=== PATIENT | male | born 1940 | race Asian ===

== ENCOUNTER 2023-11-17 19:49 | Inpatient (IN) | payer MEDICARE, OTHER ==
[~2023-11-17] VITALS: Ht 172.7 cm; Wt 62.2 kg
[~2023-11-17 19:49] MED LIST: ACETAMINOPHEN325 M1 PO; AMLODIPINE BESYL5 MG PO; COMTAN200 MG PO; DOCUSATE SODIU100 MG PO; GUAIFENESI100 MG/5 M PO; HYTRIN1 M1 PO; KEPPRA500 MG/5 M PO; METOPROLOL TART50 MG PO; MILK OF MA400 MG/5 M PO; SINEMET 25-1001 EACH PO; TRIAMCINOLONE A15 G1 TOP
[2023-11-17] MEDS: Morphine 4mg INJECTION 4 MG/ML INJ IV PRN (19:50)
[2023-11-17] MEDS: SODIUM CHLORIDE 0.9% 1000ML 1,000 ML IV STA ×2 (19:54→21:39)
[2023-11-17] MEDS: SODIUM CHLORIDE 0.9% 1000ML 2,000 ML IV STA (20:27)
[2023-11-17 20:33] LABS: BASOPHILS % 0.3 % (0.0-1.0); HEMATOCRIT 38.2 % (38.2-49.6); HEMOGLOBIN 12.1 g/dL (14.0-18.0); LYMPHOCYTES # (AUTO) 0.6 (1.0-3.2); LYMPHOCYTES % 17.5 % (18.0-39.1); MEAN CORPUSCULAR HEMOGLOBIN 30.2 pg (28-32); MEAN CORPUSCULAR HGB CONC 31.7 g/dL (31-35); MEAN CORPUSCULAR VOLUME 95.3 fL (81-99); MONOCYTES # (AUTO) 0.4 (0.2-0.8); MONOCYTES % 11.5 % (4.4-11.3); NEUTROPHILS # (AUTO) 2.4 (2.1-6.9); NEUTROPHILS % 69.8 % (38.7-80.0); PLATELET COUNT 339 x10e3/uL (140-360); RED BLOOD COUNT 4.01 x10e6/uL (4.3-5.7); RED CELL DISTRIBUTION WIDTH 14.7 % (11.7-14.4); WHITE BLOOD COUNT 3.48 x10e3/uL (4.8-10.8)
[2023-11-17] MEDS: SODIUM CHLORIDE 0.9% 1000ML 1,000 ML IV SCH (20:45)
[2023-11-17] MEDS ORDERED: ONDANSETRON HCL INJ 2MG/ML 2ML 2 MG/ML VIAL IV PRN (20:45)
[2023-11-17 20:50] LABS: ALBUMIN 3.2 g/dL (3.5-5.0); ALBUMIN/GLOBULIN RATIO 0.6 (0.8-2.0); ANION GAP 22.6 mmol/L (8-16); BILIRUBIN,TOTAL 0.5 mg/dL (0.2-1.2); CREATININE, SERUM 1.83 mg/dL (0.72-1.25); POTASSIUM 4.6 mmol/L (3.5-5.1); TOTAL PROTEIN 8.2 g/dL (6.5-8.1)
[2023-11-17 20:56] LABS: TROPONIN I 0.015 ng/mL (0-0.300)
[2023-11-17 20:57] LABS: B-TYPE NATRIURETIC PEPTIDE2 90.5 pg/mL (0-100)
[2023-11-17] MEDS ORDERED: ACETAMINOPHEN 1000 MG/100 ML 100 ML IV ONE (20:59)
[2023-11-17] MEDS ORDERED: FENTANYL CITRATE/PF 100MCG/2 ML INJ ONE (20:59)
[2023-11-17] MEDS ORDERED: ACETAMINOPHEN 325 MG TAB PO PRN (21:00)
[2023-11-17] MEDS ORDERED: MAGNESIUM HYDROXIDE 30 ML UDC PEG PRN (21:00)
[2023-11-17] MEDS: FENTANYL CITRATE/PF 100MCG/2 ML INJ IV ONE (21:15)
[2023-11-17] MEDS: Vancomycin IV 1 GM in SODIUM CHLORIDE 0.9% 250ML 250 ML IV ONE (21:25)
[2023-11-17 23:01] VITALS: PULSE 104; RESP 26; TEMP 97
[2023-11-18] VITALS (99 sets, daily range): BP systolic 77–148; BP diastolic 39–101; PULSE 35–133; RESP 14–32; TEMP 97.1–100.2; O2SAT 74–100
[2023-11-18] MEDS: ACETAMINOPHEN 325 MG TAB PO STA (00:07)
[2023-11-18] MEDS: NOREPINEPHRINE 8 MG/D5W 250 ML 250 ML IV SCH (00:08)
[2023-11-18] MEDS: CARBIDOPA/LEVODOPA 25/100 TAB PEG SCH (00:10)
[2023-11-18] MEDS ORDERED: ATIVAN1 MG PEG (00:34)
[2023-11-18] MEDS ORDERED: ONDANSETRON ODT8 MG PEG (00:34)
[2023-11-18] MEDS ORDERED: LOPERAMIDE2 MG PEG (00:34)
[2023-11-18] MEDS ORDERED: LEVSIN0.125 MG PEG (00:34)
[2023-11-18] MEDS ORDERED: HYDROCODON-ACE1 EAC9 PEG (00:34)
[2023-11-18] MEDS ORDERED: FORMULA (00:34)
[2023-11-18] MEDS ORDERED: morphine solution PEG (00:37)
[2023-11-18 02:13] LABS: CLARITY,URINE CLEAR (CLEAR); COLOR,URINE YELLOW (YELLOW); LEUKOCYTE ESTERASE ,URINE NEGATIVE (NEGATIVE); NITRITE,URINE NEGATIVE (NEGATIVE); PH,URINE 5.5 (5 - 7); PROTEIN,URINE DIPSTICK TRACE (NEGATIVE)
[2023-11-18 02:14] LABS: BILIRUBIN,URINE NEGATIVE (NEGATIVE); GLUCOSE, URINE NEGATIVE (NEGATIVE); KETONES,URINE NEGATIVE (NEGATIVE); URINE UROBILINOGEN 0.2 mg/dL (0.2 - 1)
[2023-11-18 02:50] LABS: BACTERIA,URINE MANY /HPF; EPITHELIAL CELLS,URINE FEW /LPF; TRANSITIONAL EPI CELLS,URINE FEW
[2023-11-18 02:51] LABS: WBC,URINE (MAN) 21-50 /HPF (0-5)
[2023-11-18 04:56] LABS: LYMPHOCYTES % (MANUAL) 20 % (19-48); METAMYELOCYTES % (MANUAL) 2 % (0-0); MONOCYTES % (MANUAL) 16 % (3.4-9.0); NEUTROPHILS % (MANUAL) 62 % (40-74); NUCLEATED RED BLOOD CELLS 1
[2023-11-18 04:57] LABS: PLATELET ESTIMATE ADEQUATE; PLATELET MORPHOLOGY COMMENT NORMAL; RBC MORPHOLOGY COMMENT NORMAL
[2023-11-18 05:38] LABS: HEMATOCRIT 32.1 % (38.2-49.6); LYMPHOCYTES # (AUTO) 0.8 (1.0-3.2); LYMPHOCYTES % 22.2 % (18.0-39.1); MEAN CORPUSCULAR HEMOGLOBIN 30.6 pg (28-32); MEAN CORPUSCULAR HGB CONC 31.2 g/dL (31-35); MEAN CORPUSCULAR VOLUME 98.2 fL (81-99); MONOCYTES # (AUTO) 0.4 (0.2-0.8); MONOCYTES % 11.9 % (4.4-11.3); NEUTROPHILS # (AUTO) 2.3 (2.1-6.9); NEUTROPHILS % 64.2 % (38.7-80.0); PLATELET COUNT 244 x10e3/uL (140-360); RED BLOOD COUNT 3.27 x10e6/uL (4.3-5.7); RED CELL DISTRIBUTION WIDTH 14.8 % (11.7-14.4)
[2023-11-18 06:06] LABS: ALBUMIN 2.5 g/dL (3.5-5.0); ALBUMIN/GLOBULIN RATIO 0.7 (0.8-2.0); ANION GAP 17.5 mmol/L (8-16); BILIRUBIN,TOTAL 0.3 mg/dL (0.2-1.2); CALCIUM 7.3 mg/dL (8.4-10.2); CREATININE, SERUM 1.53 mg/dL (0.72-1.25); POTASSIUM 4.5 mmol/L (3.5-5.1); TOTAL PROTEIN 6.3 g/dL (6.5-8.1)
[2023-11-18 06:12] LABS: TROPONIN I 0.018 ng/mL (0-0.300)
[2023-11-18] MEDS: DOCUSATE SODIUM 100 MG CAP PEG SCH (08:09)
[2023-11-18] MEDS: ACETAMINOPHEN 1000 MG/100 ML IV STA (08:19)
[2023-11-18 08:37] LABS: BAND NEUTROPHILS % (MANUAL) 24 %; LYMPHOCYTES % (MANUAL) 29 % (19-48); METAMYELOCYTES % (MANUAL) 11 % (0-0); MONOCYTES % (MANUAL) 6 % (3.4-9.0); MYELOCYTES % (MANUAL) 6 % (0-0); NEUTROPHILS % (MANUAL) 23 % (40-74); PROMYELOCYTES % (MANUAL) 1 % (0-0)
[2023-11-18 08:38] LABS: PLATELET ESTIMATE ADEQUATE; PLATELET MORPHOLOGY COMMENT NORMAL; RBC MORPHOLOGY COMMENT NORMAL
[2023-11-18] MEDS: SODIUM BICARBONATE 8.4% VIAL 50 ML in SODIUM CHLORIDE 0.45% 1,000 ML IV SCH (08:58)
[2023-11-18] MEDS: ACETAMINOPHEN 325 MG TAB PEG PRN (10:56)
[2023-11-18] MEDS: LEVALBUTEROL HCL SOLN NEBU 0.63 MG/3 ML NEB INH SCH (12:44)
[2023-11-18 13:09] LABS: TROPONIN I 0.027 ng/mL (0-0.300)
[2023-11-19] VITALS (83 sets, daily range): BP systolic 74–144; BP diastolic 31–86; PULSE 99–135; RESP 19–39; TEMP 99.1–102; O2SAT 79–100
[2023-11-19 05:51] LABS: BASOPHILS # (AUTO) 0.1 (0.0-0.1); BASOPHILS % 1.3 % (0.0-1.0); EOSINOPHILS # (AUTO) 0.1 (0.0-0.4); EOSINOPHILS % 1.7 % (0.0-6.0); HEMATOCRIT 28.1 % (38.2-49.6); HEMOGLOBIN 9.1 g/dL (14.0-18.0); LYMPHOCYTES # (AUTO) 0.8 (1.0-3.2); LYMPHOCYTES % 17.4 % (18.0-39.1); MEAN CORPUSCULAR HEMOGLOBIN 30.3 pg (28-32); MEAN CORPUSCULAR HGB CONC 32.4 g/dL (31-35); MEAN CORPUSCULAR VOLUME 93.7 fL (81-99); MONOCYTES # (AUTO) 0.2 (0.2-0.8); MONOCYTES % 3.7 % (4.4-11.3); NEUTROPHILS # (AUTO) 3.5 (2.1-6.9); PLATELET COUNT 202 x10e3/uL (140-360); RED CELL DISTRIBUTION WIDTH 15.1 % (11.7-14.4); WHITE BLOOD COUNT 4.61 x10e3/uL (4.8-10.8)
[2023-11-19 06:21] LABS: ALANINE AMINOTRANSFERASE < 6 IU/L (0-55); ALBUMIN 2.2 g/dL (3.5-5.0); ALBUMIN/GLOBULIN RATIO 0.6 (0.8-2.0); ALKALINE PHOSPHATASE 49 IU/L (40-150); ANION GAP 11.8 mmol/L (8-16); BILIRUBIN,TOTAL 0.3 mg/dL (0.2-1.2); BLOOD UREA NITROGEN 24 mg/dL (7-26); BUN/CREATININE RATIO 23 (6-25); CALCIUM 7.6 mg/dL (8.4-10.2); CARBON DIOXIDE 21 mmol/L (22-29); CHLORIDE 104 mmol/L (98-107); CREATININE, SERUM 1.04 mg/dL (0.72-1.25); EST GLOMERULAR FILTRATION RATE 72 ML/MIN (>=60); GLUCOSE 184 mg/dL (74-118); POTASSIUM 3.8 mmol/L (3.5-5.1); SODIUM 133 mmol/L (136-145); TOTAL PROTEIN 6.1 g/dL (6.5-8.1)
[2023-11-19 08:25] LABS: ABG HCO3 23 mmol/L (22-26); ABG PCO2 40 mmHg (35-45); ABG PH 7.37 (7.35-7.45); ABG PO2 67 mmHg (80-105); ABG TCO2 24
[2023-11-19] MEDS: MEROPENEM 1 GM in SODIUM CHLORIDE 0.9% 100 ML IV SCH (08:53)
[2023-11-19 11:02] LABS: BAND NEUTROPHILS % (MANUAL) 24 %; LYMPHOCYTES % (MANUAL) 24 % (19-48); METAMYELOCYTES % (MANUAL) 9 % (0-0); MONOCYTES % (MANUAL) 8 % (3.4-9.0); MYELOCYTES % (MANUAL) 5 % (0-0); NEUTROPHILS % (MANUAL) 29 % (40-74); REACTIVE LYMPHOCYTES 1
[2023-11-19 11:03] LABS: PLATELET ESTIMATE ADEQUATE; PLATELET MORPHOLOGY COMMENT NORMAL
[2023-11-19 12:40] LABS: FERRITIN 176.11 ng/mL (21.81-274.66)
[2023-11-19] MEDS: SODIUM FERRIC GLUCONATE COMPLX 125 MG in SODIUM CHLORIDE 0.9% 100 ML IV SCH (14:16)
[2023-11-20] VITALS (40 sets, daily range): BP systolic 84–174; BP diastolic 42–88; PULSE 67–146; RESP 18–37; TEMP 98.4–99.8; O2SAT 94–100
[2023-11-20 06:49] LABS: BASOPHILS % 0.1 % (0.0-1.0); EOSINOPHILS # (AUTO) 0.1 (0.0-0.4); EOSINOPHILS % 0.6 % (0.0-6.0); HEMATOCRIT 28.4 % (38.2-49.6); HEMOGLOBIN 9.4 g/dL (14.0-18.0); LYMPHOCYTES % 5.2 % (18.0-39.1); MEAN CORPUSCULAR HEMOGLOBIN 30.5 pg (28-32); MEAN CORPUSCULAR HGB CONC 33.1 g/dL (31-35); MEAN CORPUSCULAR VOLUME 92.2 fL (81-99); MONOCYTES # (AUTO) 0.8 (0.2-0.8); MONOCYTES % 4.3 % (4.4-11.3); NEUTROPHILS # (AUTO) 16.5 (2.1-6.9); NEUTROPHILS % 88.2 % (38.7-80.0); PLATELET COUNT 196 x10e3/uL (140-360); RED BLOOD COUNT 3.08 x10e6/uL (4.3-5.7); RED CELL DISTRIBUTION WIDTH 15.1 % (11.7-14.4); WHITE BLOOD COUNT 18.75 x10e3/uL (4.8-10.8)
[2023-11-20 07:04] LABS: ALANINE AMINOTRANSFERASE < 6 IU/L (0-55); ALBUMIN 2.1 g/dL (3.5-5.0); ALBUMIN/GLOBULIN RATIO 0.5 (0.8-2.0); ALKALINE PHOSPHATASE 78 IU/L (40-150); ANION GAP 8.8 mmol/L (8-16); BILIRUBIN,TOTAL 0.3 mg/dL (0.2-1.2); BLOOD UREA NITROGEN 25 mg/dL (7-26); BUN/CREATININE RATIO 28 (6-25); CALCIUM 9.1 mg/dL (8.4-10.2); CARBON DIOXIDE 29 mmol/L (22-29); CHLORIDE 105 mmol/L (98-107); CREATININE, SERUM 0.89 mg/dL (0.72-1.25); EST GLOMERULAR FILTRATION RATE 86 ML/MIN (>=60); GLUCOSE 143 mg/dL (74-118); POTASSIUM 3.8 mmol/L (3.5-5.1); SODIUM 139 mmol/L (136-145); TOTAL PROTEIN 6.1 g/dL (6.5-8.1)
[2023-11-20 07:16] LABS: MAGNESIUM 1.6 MG/DL (1.3-2.1); PHOSPHORUS 1.3 MG/DL (2.3-4.7)
[2023-11-20] MEDS: MAGNESIUM SULFATE 2GM/50ML 50 ML IV ONE (08:04)
[2023-11-20] MEDS ORDERED: POTASSIUM PHOSPHATE 15 MM in SODIUM CHLORIDE 0.9% 250ML 250 ML IV ONE (08:30)
[2023-11-20] MEDS: METHYLPREDNISOLONE SOD SUCC 40 MG/ML VIAL 1ML IV ONE (08:39)
[2023-11-20] MEDS: POTASSIUM PHOSPHATE 15 MM in SODIUM CHLORIDE 0.9% 250ML 250 ML IV ONE (09:25)
[2023-11-20] MEDS: DEXMEDETOMIDINE 400MCG/NS100ML 100 ML IV PRN (10:57)
[2023-11-20] MEDS: FUROSEMIDE INJ 10 MG/ML 2 ML VIAL IV ONE (11:40)
[2023-11-20 13:05] LABS: ABG HCO3 29 mmol/L (22-26); ABG PCO2 53 mmHg (35-45); ABG PH 7.34 (7.35-7.45); ABG PO2 116 mmHg (80-105); ABG TCO2 30
[2023-11-20] MEDS: REMDESIVIR 100MG 200 MG in SODIUM CHLORIDE 0.9% 100 ML IV ONE (15:13)
[2023-11-20] MEDS: ENOXAPARIN SOD INJ 40 MG/0.4 ML SYR SC SCH (16:02)
[2023-11-21] VITALS (32 sets, daily range): BP systolic 90–143; BP diastolic 51–83; PULSE 73–113; RESP 20–36; TEMP 98.1–98.9; O2SAT 92–100
[2023-11-21 06:33] LABS: HEMATOCRIT 28.8 % (38.2-49.6); HEMOGLOBIN 9.2 g/dL (14.0-18.0); LYMPHOCYTES # (AUTO) 1.1 (1.0-3.2); LYMPHOCYTES % 5.3 % (18.0-39.1); MEAN CORPUSCULAR HGB CONC 31.9 g/dL (31-35); MEAN CORPUSCULAR VOLUME 93.8 fL (81-99); MONOCYTES # (AUTO) 1.4 (0.2-0.8); MONOCYTES % 6.6 % (4.4-11.3); NEUTROPHILS # (AUTO) 18.1 (2.1-6.9); NEUTROPHILS % 85.8 % (38.7-80.0); PLATELET COUNT 201 x10e3/uL (140-360); RED BLOOD COUNT 3.07 x10e6/uL (4.3-5.7); RED CELL DISTRIBUTION WIDTH 15.3 % (11.7-14.4); WHITE BLOOD COUNT 21.04 x10e3/uL (4.8-10.8)
[2023-11-21 06:58] LABS: ALANINE AMINOTRANSFERASE < 6 IU/L (0-55); ALBUMIN/GLOBULIN RATIO 0.5 (0.8-2.0); ALKALINE PHOSPHATASE 80 IU/L (40-150); ANION GAP 11.9 mmol/L (8-16); BILIRUBIN,TOTAL 0.2 mg/dL (0.2-1.2); BLOOD UREA NITROGEN 37 mg/dL (7-26); BUN/CREATININE RATIO 41 (6-25); CALCIUM 9.2 mg/dL (8.4-10.2); CARBON DIOXIDE 28 mmol/L (22-29); CHLORIDE 105 mmol/L (98-107); EST GLOMERULAR FILTRATION RATE 85 ML/MIN (>=60); GLUCOSE 159 mg/dL (74-118); POTASSIUM 3.9 mmol/L (3.5-5.1); SODIUM 141 mmol/L (136-145)
[2023-11-21] MEDS: Vancomycin IV 1 GM in SODIUM CHLORIDE 0.9% 250ML 250 ML IV ONE (09:13)
[2023-11-21] MEDS: ALBUMIN 25% 25GM 100ML 0.25 GM/ML BTL IV SCH (09:13)
[2023-11-21] MEDS: DEXAMETHASONE SOD PHOS 10 MG/1 ML VIAL IV SCH (09:13)
[2023-11-21] MEDS: FUROSEMIDE INJ 10 MG/ML 2 ML VIAL IV ONE (09:15)
[2023-11-21 09:49] LABS: LYMPHOCYTES % (MANUAL) 11 % (19-48); MONOCYTES % (MANUAL) 6 % (3.4-9.0); NEUTROPHILS % (MANUAL) 83 % (40-74); PLATELET ESTIMATE ADEQUATE; PLATELET MORPHOLOGY COMMENT NORMAL
[2023-11-21 09:50] LABS: ANISOCYTOSIS SLIGHT; HYPOCHROMASIA SLIGHT; RBC MORPHOLOGY COMMENT NORMAL
[2023-11-21] MEDS: REMDESIVIR 100MG 100 MG in SODIUM CHLORIDE 0.9% 100 ML IV SCH (15:07)
[2023-11-21] MEDS: CEFTRIAXONE 2 GM in SODIUM CHLORIDE 0.9% 100 ML IV SCH (17:19)
[2023-11-22] VITALS (42 sets, daily range): BP systolic 105–150; BP diastolic 56–110; PULSE 63–103; RESP 18–33; TEMP 97.5–99.5; O2SAT 97–100
[2023-11-22 06:42] LABS: BASOPHILS # (AUTO) 0.1 (0.0-0.1); BASOPHILS % 0.4 % (0.0-1.0); HEMATOCRIT 27.3 % (38.2-49.6); HEMOGLOBIN 8.9 g/dL (14.0-18.0); LYMPHOCYTES % 5.4 % (18.0-39.1); MEAN CORPUSCULAR HEMOGLOBIN 30.2 pg (28-32); MEAN CORPUSCULAR HGB CONC 32.6 g/dL (31-35); MEAN CORPUSCULAR VOLUME 92.5 fL (81-99); MONOCYTES # (AUTO) 2.3 (0.2-0.8); NEUTROPHILS % 77.9 % (38.7-80.0); PLATELET COUNT 195 x10e3/uL (140-360); RED BLOOD COUNT 2.95 x10e6/uL (4.3-5.7); RED CELL DISTRIBUTION WIDTH 15.1 % (11.7-14.4)
[2023-11-22 07:22] LABS: ALBUMIN 2.7 g/dL (3.5-5.0); ALBUMIN/GLOBULIN RATIO 0.8 (0.8-2.0); ANION GAP 10.9 mmol/L (8-16); BILIRUBIN,TOTAL 0.1 mg/dL (0.2-1.2); CREATININE, SERUM 0.92 mg/dL (0.72-1.25); POTASSIUM 3.9 mmol/L (3.5-5.1)
[2023-11-22 11:41] LABS: BAND NEUTROPHILS % (MANUAL) 2 %; LYMPHOCYTES % (MANUAL) 9 % (19-48); METAMYELOCYTES % (MANUAL) 3 % (0-0); MONOCYTES % (MANUAL) 6 % (3.4-9.0); NEUTROPHILS % (MANUAL) 80 % (40-74)
[2023-11-22 11:43] LABS: PLATELET ESTIMATE ADEQUATE; PLATELET MORPHOLOGY COMMENT NORMAL
[2023-11-22 11:44] LABS: RBC MORPHOLOGY COMMENT NORMAL; TOXIC GRANULATION SLIGHT
[2023-11-23] VITALS (12 sets, daily range): BP systolic 103–176; BP diastolic 51–85; PULSE 63–116; RESP 15–30; TEMP 98.5–99.6; O2SAT 97–100
[2023-11-23 06:30] LABS: BASOPHILS # (AUTO) 0.1 (0.0-0.1); BASOPHILS % 0.5 % (0.0-1.0); HEMATOCRIT 29.3 % (38.2-49.6); HEMOGLOBIN 9.5 g/dL (14.0-18.0); LYMPHOCYTES # (AUTO) 1.8 (1.0-3.2); LYMPHOCYTES % 11.7 % (18.0-39.1); MEAN CORPUSCULAR HEMOGLOBIN 30.4 pg (28-32); MEAN CORPUSCULAR HGB CONC 32.4 g/dL (31-35); MEAN CORPUSCULAR VOLUME 93.9 fL (81-99); MONOCYTES # (AUTO) 2.3 (0.2-0.8); MONOCYTES % 14.6 % (4.4-11.3); NEUTROPHILS # (AUTO) 10.6 (2.1-6.9); NEUTROPHILS % 68.7 % (38.7-80.0); PLATELET COUNT 214 x10e3/uL (140-360); RED BLOOD COUNT 3.12 x10e6/uL (4.3-5.7); RED CELL DISTRIBUTION WIDTH 15.2 % (11.7-14.4); WHITE BLOOD COUNT 15.44 x10e3/uL (4.8-10.8)
[2023-11-23 06:58] LABS: ALBUMIN 2.5 g/dL (3.5-5.0); ALBUMIN/GLOBULIN RATIO 0.8 (0.8-2.0); ANION GAP 9.9 mmol/L (8-16); BILIRUBIN,TOTAL 0.2 mg/dL (0.2-1.2); CALCIUM 8.9 mg/dL (8.4-10.2); CREATININE, SERUM 0.86 mg/dL (0.72-1.25); POTASSIUM 3.9 mmol/L (3.5-5.1); TOTAL PROTEIN 5.8 g/dL (6.5-8.1)
[2023-11-23 07:06] LABS: MAGNESIUM 1.8 MG/DL (1.3-2.1); PHOSPHORUS 3.5 MG/DL (2.3-4.7)
[2023-11-23] MEDS: SODIUM CHLORIDE 0.9% 500ML 500 ML IV ONE (09:04)
[2023-11-23] MEDS ORDERED: DIATRIZOATE MEGL/DIATRIZOA SOD 30 ML BTL PO ONE (15:11)
[2023-11-24] VITALS (19 sets, daily range): BP systolic 136–163; BP diastolic 73–93; PULSE 88–136; RESP 18–34; TEMP 98.6–99.2; O2SAT 95–100
[2023-11-24 06:45] LABS: BASOPHILS # (AUTO) 0.1 (0.0-0.1); BASOPHILS % 0.3 % (0.0-1.0); EOSINOPHILS % 0.2 % (0.0-6.0); HEMATOCRIT 30.6 % (38.2-49.6); HEMOGLOBIN 9.7 g/dL (14.0-18.0); LYMPHOCYTES # (AUTO) 2.5 (1.0-3.2); LYMPHOCYTES % 12.8 % (18.0-39.1); MEAN CORPUSCULAR HEMOGLOBIN 29.8 pg (28-32); MEAN CORPUSCULAR HGB CONC 31.7 g/dL (31-35); MEAN CORPUSCULAR VOLUME 93.9 fL (81-99); MONOCYTES # (AUTO) 2.8 (0.2-0.8); MONOCYTES % 14.8 % (4.4-11.3); NEUTROPHILS # (AUTO) 12.7 (2.1-6.9); NEUTROPHILS % 65.9 % (38.7-80.0); PLATELET COUNT 274 x10e3/uL (140-360); RED BLOOD COUNT 3.26 x10e6/uL (4.3-5.7); RED CELL DISTRIBUTION WIDTH 15.1 % (11.7-14.4); WHITE BLOOD COUNT 19.21 x10e3/uL (4.8-10.8)
[2023-11-24 07:16] LABS: ALBUMIN 2.5 g/dL (3.5-5.0); ALBUMIN/GLOBULIN RATIO 0.7 (0.8-2.0); ALKALINE PHOSPHATASE 64 IU/L (40-150); ANION GAP 11.5 mmol/L (8-16); BILIRUBIN,TOTAL 0.2 mg/dL (0.2-1.2); BLOOD UREA NITROGEN 49 mg/dL (7-26); BUN/CREATININE RATIO 61 (6-25); CALCIUM 8.7 mg/dL (8.4-10.2); CARBON DIOXIDE 31 mmol/L (22-29); CHLORIDE 105 mmol/L (98-107); EST GLOMERULAR FILTRATION RATE 88 ML/MIN (>=60); GLUCOSE 159 mg/dL (74-118); POTASSIUM 3.5 mmol/L (3.5-5.1); SODIUM 144 mmol/L (136-145); TOTAL PROTEIN 5.9 g/dL (6.5-8.1)
[2023-11-24 07:18] LABS: ALANINE AMINOTRANSFERASE < 6 IU/L (0-55)
[2023-11-24 08:56] LABS: LYMPHOCYTES % (MANUAL) 4 % (19-48); MONOCYTES % (MANUAL) 12 % (3.4-9.0); NEUTROPHILS % (MANUAL) 79 % (40-74); PLATELET ESTIMATE ADEQUATE; PLATELET MORPHOLOGY COMMENT NORMAL; RBC MORPHOLOGY COMMENT NORMAL; REACTIVE LYMPHOCYTES 5
[2023-11-24] MEDS: DOCUSATE SODIUM LIQD 100 MG/10 ML UDC PEG SCH (09:00)
[2023-11-24] MEDS: POTASSIUM CHLORIDE 20MEQ/100ML 200 ML IV ONE (09:28)
[2023-11-25] VITALS (13 sets, daily range): BP systolic 119–154; BP diastolic 61–77; PULSE 89–119; RESP 18–24; TEMP 98.1–99.7; O2SAT 96–100
[2023-11-25 06:04] LABS: BASOPHILS # (AUTO) 0.1 (0.0-0.1); BASOPHILS % 0.4 % (0.0-1.0); EOSINOPHILS # (AUTO) 0.1 (0.0-0.4); EOSINOPHILS % 0.5 % (0.0-6.0); HEMATOCRIT 29.1 % (38.2-49.6); HEMOGLOBIN 9.4 g/dL (14.0-18.0); LYMPHOCYTES # (AUTO) 2.4 (1.0-3.2); LYMPHOCYTES % 13.6 % (18.0-39.1); MEAN CORPUSCULAR HGB CONC 32.3 g/dL (31-35); MONOCYTES # (AUTO) 1.8 (0.2-0.8); MONOCYTES % 10.1 % (4.4-11.3); NEUTROPHILS # (AUTO) 12.4 (2.1-6.9); NEUTROPHILS % 70.3 % (38.7-80.0); PLATELET COUNT 305 x10e3/uL (140-360); RED BLOOD COUNT 3.13 x10e6/uL (4.3-5.7); RED CELL DISTRIBUTION WIDTH 15.9 % (11.7-14.4); WHITE BLOOD COUNT 17.67 x10e3/uL (4.8-10.8)
[2023-11-25 06:33] LABS: CALCIUM 8.9 mg/dL (8.4-10.2); CREATININE, SERUM 0.85 mg/dL (0.72-1.25)
[2023-11-25 06:38] LABS: EOSINOPHILS % (MANUAL) 1 % (0-7); LYMPHOCYTES % (MANUAL) 20 % (19-48); MONOCYTES % (MANUAL) 8 % (3.4-9.0); NEUTROPHILS % (MANUAL) 69 % (40-74); PLATELET ESTIMATE ADEQUATE; REACTIVE LYMPHOCYTES 2
[2023-11-25 06:39] LABS: PLATELET MORPHOLOGY COMMENT NORMAL; RBC MORPHOLOGY COMMENT NORMAL
[2023-11-26] VITALS (13 sets, daily range): BP systolic 102–140; BP diastolic 62–78; PULSE 94–118; RESP 18–20; TEMP 97.6–99.8; O2SAT 90–99
[2023-11-27] VITALS (14 sets, daily range): BP systolic 114–142; BP diastolic 55–81; PULSE 92–106; RESP 17–20; TEMP 97.4–98.7; O2SAT 94–100
[2023-11-28] VITALS (9 sets, daily range): BP systolic 113–128; BP diastolic 58–68; PULSE 85–114; RESP 18–20; TEMP 97.4–98.3; O2SAT 95–100
[2023-11-28] MEDS ORDERED: LEVALBUTEROL HCL SOLN NEBU 0.63 MG/3 ML NEB INH PRN (10:00)
[2023-11-28] MEDS ORDERED: MILK OF MA400 MG/5 M PEG (13:22)
[2023-11-28] MEDS ORDERED: ACETAMINOPHEN325 M1 PEG (13:22)
[2023-11-28] MEDS ORDERED: COLACE100 MG/10 PEG (13:22)
== END 2023-11-28 17:44 | DRG 871 ==
LOC: ER 20:02 → ERHOLD 21:28 → ICU 23:58 → MED/SURG3 11-24 20:47
PROVIDERS: ADMIT Internal Medicine; ATTEND Internal Medicine
PROC: 0T9B70Z Drainage of Bladder with Drainage Device, Via Natural or Artificial Opening (ICD-10-PCS; principal; 2023-11-17)
PROC: 3E0333Z Introduction of Anti-inflammatory into Peripheral Vein, Percutaneous Approach (ICD-10-PCS; 2023-11-17)
PROC: 3E033XZ Introduction of Vasopressor into Peripheral Vein, Percutaneous Approach (ICD-10-PCS; 2023-11-17)
PROC: 06HY33Z Insertion of Infusion Device into Lower Vein, Percutaneous Approach (ICD-10-PCS; 2023-11-17)
PROC: 5A0955A Assistance with Respiratory Ventilation, Greater than 96 Consecutive Hours, High Flow/Velocity Cannula (ICD-10-PCS; 2023-11-18)
PROC: 02HV33Z Insertion of Infusion Device into Superior Vena Cava, Percutaneous Approach (ICD-10-PCS; 2023-11-18)
PROC: 5A09357 Assistance with Respiratory Ventilation, Less than 24 Consecutive Hours, Continuous Positive Airway Pressure (ICD-10-PCS; 2023-11-19)
PROC: 4A133R1 Monitoring of Arterial Saturation, Peripheral, Percutaneous Approach (ICD-10-PCS; 2023-11-19)
PROC: XW033E5 Introduction of Remdesivir Anti-infective into Peripheral Vein, Percutaneous Approach, New Technology Group 5 (ICD-10-PCS; 2023-11-20)
DX: A41.9 Sepsis, unspecified organism (principal); G93.41 Metabolic encephalopathy; J96.00 Acute respiratory failure, unspecified whether with hypoxia or hypercapnia; J69.0 Pneumonitis due to inhalation of food and vomit; R65.21 Severe sepsis with septic shock; U07.1 COVID-19; E44.0 Moderate protein-calorie malnutrition; N17.9 Acute kidney failure, unspecified; E87.21 Acute metabolic acidosis; N39.0 Urinary tract infection, site not specified; I50.32 Chronic diastolic (congestive) heart failure; I13.0 Hypertensive heart and chronic kidney disease with heart failure and stage 1 through stage 4 chronic kidney disease, or unspecified chronic kidney disease; G20.C Parkinsonism, unspecified; F02.80 Dementia in other diseases classified elsewhere, unspecified severity, without behavioral disturbance, psychotic disturbance, mood disturbance, and anxiety; N18.30 Chronic kidney disease, stage 3 unspecified; E86.0 Dehydration; D63.1 Anemia in chronic kidney disease; E83.39 Other disorders of phosphorus metabolism; N40.0 Benign prostatic hyperplasia without lower urinary tract symptoms; Z93.1 Gastrostomy status; M62.50 Muscle wasting and atrophy, not elsewhere classified, unspecified site; R13.10 Dysphagia, unspecified; R53.81 Other malaise; D50.9 Iron deficiency anemia, unspecified; E83.42 Hypomagnesemia; F09 Unspecified mental disorder due to known physiological condition; Z68.23 Body mass index [BMI] 23.0-23.9, adult; G40.909 Epilepsy, unspecified, not intractable, without status epilepticus; Y95 Nosocomial condition; Z74.01 Bed confinement status; Z89.512 Acquired absence of left leg below knee
CPT/HCPCS: 36415; 36555; 36569; 36600; 71045; 74018; 80048; 80053; 81001; 82550; 82607; 82728; 82746; 82805; 82948; 83540; 83605; 83690; 83735; 83880; 84100; 84466; 84484; 85025; 85045; 87040; 87086; 93005; 93306; 94640; 94660; 94799; 99252; 99285; J0248; J0696; J1100; J1650; J1940; J2185; J2270; J2405; J2916; J2919; J3475; J3480; J7030; J7040; J7050; P9047; Q9963; U0002

== ENCOUNTER 2024-01-10 13:15 | Inpatient (IN) | payer MEDICARE ==
[2024-01-10] VITALS (17 sets, daily range): BP systolic 91–149; BP diastolic 56–97; PULSE 59–133; RESP 20–26; TEMP 96.7–97.6; O2SAT 99–100
[~2024-01-10] VITALS: Ht 172.7 cm; Wt 54.9 kg
[~2024-01-10 13:15] MED LIST changes: +ACETAMINOPHEN325 M1 PEG; +ATIVAN1 MG PEG; +COLACE100 MG/10 PEG; +ETOMIDATE 2 MG/ML 10 ML INJ IV ONE; +FORMULA; +HYDROCODON-ACE1 EAC9 PEG; +LEVSIN0.125 MG PEG; +LOPERAMIDE2 MG PEG; +MILK OF MA400 MG/5 M PEG; +ONDANSETRON ODT8 MG PEG; +SUCCINYLCHOLINE CHLORIDE 20 MG/ML 10ML VIAL ONE; +morphine solution PEG
[2024-01-10 13:42] LABS: BASOPHILS # (AUTO) 0.2 (0.0-0.1); BASOPHILS % 0.5 % (0.0-1.0); EOSINOPHILS # (AUTO) 0.3 (0.0-0.4); EOSINOPHILS % 0.7 % (0.0-6.0); HEMATOCRIT 32.8 % (38.2-49.6); HEMOGLOBIN 10.2 g/dL (14.0-18.0); LYMPHOCYTES # (AUTO) 12.8 (1.0-3.2); LYMPHOCYTES % 35.9 % (18.0-39.1); MEAN CORPUSCULAR HEMOGLOBIN 30.4 pg (28-32); MEAN CORPUSCULAR HGB CONC 31.1 g/dL (31-35); MEAN CORPUSCULAR VOLUME 97.6 fL (81-99); MONOCYTES # (AUTO) 3.1 (0.2-0.8); MONOCYTES % 8.7 % (4.4-11.3); NEUTROPHILS # (AUTO) 18.3 (2.1-6.9); NEUTROPHILS % 51.2 % (38.7-80.0); PLATELET COUNT 671 x10e3/uL (140-360); RED BLOOD COUNT 3.36 x10e6/uL (4.3-5.7); RED CELL DISTRIBUTION WIDTH 16.7 % (11.7-14.4); WHITE BLOOD COUNT 35.72 x10e3/uL (4.8-10.8)
[2024-01-10 13:46] LABS: INR 1.07; PROTHROMBIN TIME 14.5 seconds (11.9-14.5)
[2024-01-10 13:47] LABS: PARTIAL THROMBOPLASTIN TIME 34.5 seconds (23.8-35.5)
[2024-01-10 13:56] LABS: ALBUMIN 2.9 g/dL (3.5-5.0); ALBUMIN/GLOBULIN RATIO 0.5 (0.8-2.0); ANION GAP 15.3 mmol/L (8-16); BILIRUBIN,TOTAL 0.3 mg/dL (0.2-1.2); CALCIUM 9.4 mg/dL (8.4-10.2); CREATININE, SERUM 1.23 mg/dL (0.72-1.25); MAGNESIUM 2.4 MG/DL (1.3-2.1); POTASSIUM 4.3 mmol/L (3.5-5.1); TOTAL PROTEIN 8.2 g/dL (6.5-8.1)
[2024-01-10 14:03] LABS: TROPONIN I 0.004 ng/mL (0-0.300)
[2024-01-10 14:05] LABS: INFLUENZAE A&B ANTIGEN (RAPID) NEGATIVE (NEGATIVE)
[2024-01-10 14:06] LABS: RESPIRATORY SYNC. VIRUS NEGATIVE (NEGATIVE)
[2024-01-10] MEDS ORDERED: NOREPINEPHRINE 8 MG/D5W 250 ML 250 ML ONE (14:08)
[2024-01-10] MEDS ORDERED: PROPOFOL IV EMULSION 50 ML IV ONE (14:50)
[2024-01-10] MEDS: PROPOFOL IV EMULSION 10MG/ML 100 ML IV PRN (14:55)
[2024-01-10] MEDS ORDERED: ALBUTEROL SULF 0.083% NEB SOLN 3 ML NEB NEB SCH (15:00)
[2024-01-10] MEDS: ALBUTEROL SULF 0.083% NEB SOLN 3 ML NEB NEB SCH (15:00)
[2024-01-10] MEDS: Vancomycin IV 1 GM in SODIUM CHLORIDE 0.9% 250ML 250 ML IV ONE (15:26)
[2024-01-10] MEDS: SODIUM CHLORIDE 0.9% 1000ML 1,000 ML IV STA ×2 (15:27)
[2024-01-10 15:54] LABS: BILIRUBIN,URINE NEGATIVE (NEGATIVE); CLARITY,URINE SL CLOUDY (CLEAR); COLOR,URINE YELLOW (YELLOW); GLUCOSE, URINE NEGATIVE (NEGATIVE); KETONES,URINE NEGATIVE (NEGATIVE); LEUKOCYTE ESTERASE ,URINE NEGATIVE (NEGATIVE); NITRITE,URINE NEGATIVE (NEGATIVE); PH,URINE 5.5 (5 - 7); PROTEIN,URINE DIPSTICK TRACE (NEGATIVE); URINE UROBILINOGEN 0.2 mg/dL (0.2 - 1)
[2024-01-10 15:54] LABS: ABG HCO3 22 mmol/L (22-26); ABG PCO2 48 mmHg (35-45); ABG PH 7.27 (7.35-7.45); ABG PO2 141 mmHg (80-105); ABG TCO2 23
[2024-01-10 16:17] LABS: BACTERIA,URINE MODERATE /HPF; WBC,URINE (MAN) 0-5 /HPF (0-5)
[2024-01-10] MEDS: IPRATROPIUM BROMIDE 0.02% 2.5 ML NEB NEB SCH (16:34)
[2024-01-10] MEDS: DEXMEDETOMIDINE 400MCG/NS100ML 100 ML IV PRN (16:48)
[2024-01-10] MEDS: MEROPENEM 1 GM in SODIUM CHLORIDE 0.9% 100 ML IV ONE (16:57)
[2024-01-10 17:28] LABS: BAND NEUTROPHILS % (MANUAL) 4 %; LYMPHOCYTES % (MANUAL) 37 % (19-48); METAMYELOCYTES % (MANUAL) 1 % (0-0); MONOCYTES % (MANUAL) 7 % (3.4-9.0); NEUTROPHILS % (MANUAL) 51 % (40-74)
[2024-01-10 17:29] LABS: PLATELET ESTIMATE MARKEDLY DECREASED; PLATELET MORPHOLOGY COMMENT NORMAL; RBC MORPHOLOGY COMMENT NORMAL
[2024-01-10] MEDS: CARBIDOPA/LEVODOPA 25/100 TAB PEG SCH (17:52)
[2024-01-10] MEDS: MEROPENEM 1 GM in SODIUM CHLORIDE 0.9% 100 ML IV SCH (22:23)
[2024-01-11] VITALS (53 sets, daily range): BP systolic 79–162; BP diastolic 46–77; PULSE 47–65; RESP 0–20; TEMP 96.9–98.9; O2SAT 100
[2024-01-11 00:45] LABS: TROPONIN I 0.013 ng/mL (0-0.300)
[2024-01-11] MEDS ORDERED: NOREPINEPHRINE 8 MG/D5W 250 ML 250 ML IV SCH ×2 (05:30→09:30)
[2024-01-11 06:18] LABS: ABG HCO3 22 mmol/L (22-26); ABG PCO2 28 mmHg (35-45); ABG PH 7.51 (7.35-7.45); ABG PO2 285 mmHg (80-105); ABG TCO2 23
[2024-01-11] MEDS: NOREPINEPHRINE 8 MG/D5W 250 ML 250 ML IV SCH (06:45)
[2024-01-11 06:51] LABS: BASOPHILS # (AUTO) 0.1 (0.0-0.1); BASOPHILS % 0.5 % (0.0-1.0); EOSINOPHILS # (AUTO) 0.2 (0.0-0.4); HEMATOCRIT 26.4 % (38.2-49.6); HEMOGLOBIN 8.4 g/dL (14.0-18.0); LYMPHOCYTES # (AUTO) 2.7 (1.0-3.2); LYMPHOCYTES % 17.7 % (18.0-39.1); MEAN CORPUSCULAR HEMOGLOBIN 30.5 pg (28-32); MEAN CORPUSCULAR HGB CONC 31.8 g/dL (31-35); MONOCYTES # (AUTO) 1.4 (0.2-0.8); MONOCYTES % 9.2 % (4.4-11.3); NEUTROPHILS # (AUTO) 10.7 (2.1-6.9); PLATELET COUNT 380 x10e3/uL (140-360); RED BLOOD COUNT 2.75 x10e6/uL (4.3-5.7); RED CELL DISTRIBUTION WIDTH 16.6 % (11.7-14.4); WHITE BLOOD COUNT 15.33 x10e3/uL (4.8-10.8)
[2024-01-11 07:30] LABS: ALBUMIN 2.3 g/dL (3.5-5.0); ALBUMIN/GLOBULIN RATIO 0.6 (0.8-2.0); ANION GAP 13.4 mmol/L (8-16); BILIRUBIN,TOTAL 0.3 mg/dL (0.2-1.2); CALCIUM 8.6 mg/dL (8.4-10.2); CREATININE, SERUM 0.89 mg/dL (0.72-1.25); TOTAL PROTEIN 6.2 g/dL (6.5-8.1)
[2024-01-11 07:32] LABS: POTASSIUM 3.4 mmol/L (3.5-5.1)
[2024-01-11 07:51] LABS: TROPONIN I 0.012 ng/mL (0-0.300)
[2024-01-11] MEDS: Vancomycin IV 1 GM in SODIUM CHLORIDE 0.9% 250ML 250 ML IV SCH (08:36)
[2024-01-11] MEDS: ENOXAPARIN SOD INJ 40 MG/0.4 ML SYR SC SCH (08:37)
[2024-01-11] MEDS: DOCUSATE SODIUM LIQD 100 MG/10 ML UDC PEG SCH (08:37)
[2024-01-11] MEDS: POTASSIUM CHLORIDE 20MEQ/100ML 200 ML IV ONE (08:39)
[2024-01-11] MEDS: SODIUM CHLORIDE 0.9% 1000ML 1,000 ML ONE (08:46)
[2024-01-11 09:46] LABS: ABG HCO3 24 mmol/L (22-26); ABG PCO2 34 mmHg (35-45); ABG PH 7.46 (7.35-7.45); ABG PO2 156 mmHg (80-105); ABG TCO2 25
[2024-01-11] MEDS: BALSAM PERU/CASTOR OIL 60 GM OINT...G. TP SCH (16:51)
[2024-01-12] VITALS (60 sets, daily range): BP systolic 99–218; BP diastolic 55–207; PULSE 58–139; RESP 0–24; TEMP 97.9–98.9; O2SAT 94–100
[2024-01-12 06:55] LABS: BASOPHILS % 0.2 % (0.0-1.0); EOSINOPHILS # (AUTO) 0.2 (0.0-0.4); EOSINOPHILS % 1.6 % (0.0-6.0); HEMATOCRIT 28.7 % (38.2-49.6); HEMOGLOBIN 9.1 g/dL (14.0-18.0); LYMPHOCYTES # (AUTO) 0.6 (1.0-3.2); MEAN CORPUSCULAR HEMOGLOBIN 31.2 pg (28-32); MEAN CORPUSCULAR HGB CONC 31.7 g/dL (31-35); MEAN CORPUSCULAR VOLUME 98.3 fL (81-99); MONOCYTES # (AUTO) 1.1 (0.2-0.8); MONOCYTES % 11.2 % (4.4-11.3); NEUTROPHILS # (AUTO) 8.1 (2.1-6.9); NEUTROPHILS % 79.4 % (38.7-80.0); PLATELET COUNT 454 x10e3/uL (140-360); RED BLOOD COUNT 2.92 x10e6/uL (4.3-5.7); RED CELL DISTRIBUTION WIDTH 17.3 % (11.7-14.4); WHITE BLOOD COUNT 10.21 x10e3/uL (4.8-10.8)
[2024-01-12 08:30] LABS: ALBUMIN 2.3 g/dL (3.5-5.0); ALBUMIN/GLOBULIN RATIO 0.5 (0.8-2.0); ANION GAP 13.6 mmol/L (8-16); BILIRUBIN,TOTAL 0.3 mg/dL (0.2-1.2); CALCIUM 8.9 mg/dL (8.4-10.2); CREATININE, SERUM 0.73 mg/dL (0.72-1.25); POTASSIUM 4.6 mmol/L (3.5-5.1); TOTAL PROTEIN 6.9 g/dL (6.5-8.1)
[2024-01-12 08:48] LABS: ABG PH 7.37 (7.35-7.45)
[2024-01-12 08:49] LABS: ABG HCO3 22 mmol/L (22-26); ABG PCO2 39 mmHg (35-45); ABG PO2 122 mmHg (80-105); ABG TCO2 23
[2024-01-12 08:52] LABS: BASOPHILS % (MANUAL) 1 % (0-1.5); EOSINOPHILS % (MANUAL) 2 % (0-7); LYMPHOCYTES % (MANUAL) 4 % (19-48); METAMYELOCYTES % (MANUAL) 1 % (0-0); MONOCYTES % (MANUAL) 12 % (3.4-9.0); NEUTROPHILS % (MANUAL) 80 % (40-74); PLATELET ESTIMATE ADEQUATE; PLATELET MORPHOLOGY COMMENT NORMAL; RBC MORPHOLOGY COMMENT NORMAL
[2024-01-12] MEDS: BALSAM PERU/CASTOR OIL 60 GM OINT...G. TP SCH (09:07)
[2024-01-13] VITALS (31 sets, daily range): BP systolic 103–155; BP diastolic 60–116; PULSE 93–139; RESP 18–41; TEMP 97.7–98.1; O2SAT 93–100
[2024-01-13 06:06] LABS: BASOPHILS % 0.3 % (0.0-1.0); EOSINOPHILS # (AUTO) 0.1 (0.0-0.4); EOSINOPHILS % 0.9 % (0.0-6.0); HEMATOCRIT 29.1 % (38.2-49.6); HEMOGLOBIN 9.1 g/dL (14.0-18.0); LYMPHOCYTES # (AUTO) 1.8 (1.0-3.2); LYMPHOCYTES % 12.5 % (18.0-39.1); MEAN CORPUSCULAR HEMOGLOBIN 30.4 pg (28-32); MEAN CORPUSCULAR HGB CONC 31.3 g/dL (31-35); MEAN CORPUSCULAR VOLUME 97.3 fL (81-99); MONOCYTES # (AUTO) 1.7 (0.2-0.8); MONOCYTES % 12.1 % (4.4-11.3); NEUTROPHILS # (AUTO) 10.2 (2.1-6.9); NEUTROPHILS % 72.8 % (38.7-80.0); PLATELET COUNT 435 x10e3/uL (140-360); RED BLOOD COUNT 2.99 x10e6/uL (4.3-5.7); RED CELL DISTRIBUTION WIDTH 17.2 % (11.7-14.4)
[2024-01-13 06:34] LABS: ALBUMIN 2.3 g/dL (3.5-5.0); ALBUMIN/GLOBULIN RATIO 0.5 (0.8-2.0); BILIRUBIN,TOTAL 0.2 mg/dL (0.2-1.2); CALCIUM 8.7 mg/dL (8.4-10.2); CREATININE, SERUM 0.75 mg/dL (0.72-1.25); TOTAL PROTEIN 6.9 g/dL (6.5-8.1)
[2024-01-13] MEDS: SODIUM CHLORIDE 0.9% 500ML 500 ML ONE (23:32)
[2024-01-14] VITALS (27 sets, daily range): BP systolic 106–160; BP diastolic 57–123; PULSE 84–146; RESP 19–49; TEMP 97.8–98.6; O2SAT 95–100
[2024-01-14] MEDS: METOPROLOL SUCCINATE 25 MG TAB XL PO SCH (06:20)
[2024-01-14 06:55] LABS: BASOPHILS # (AUTO) 0.1 (0.0-0.1); BASOPHILS % 0.5 % (0.0-1.0); EOSINOPHILS # (AUTO) 0.1 (0.0-0.4); EOSINOPHILS % 1.1 % (0.0-6.0); HEMATOCRIT 27.6 % (38.2-49.6); HEMOGLOBIN 8.7 g/dL (14.0-18.0); LYMPHOCYTES # (AUTO) 2.9 (1.0-3.2); LYMPHOCYTES % 23.6 % (18.0-39.1); MEAN CORPUSCULAR HEMOGLOBIN 30.2 pg (28-32); MEAN CORPUSCULAR HGB CONC 31.5 g/dL (31-35); MEAN CORPUSCULAR VOLUME 95.8 fL (81-99); MONOCYTES # (AUTO) 1.5 (0.2-0.8); MONOCYTES % 12.3 % (4.4-11.3); NEUTROPHILS # (AUTO) 7.5 (2.1-6.9); NEUTROPHILS % 61.4 % (38.7-80.0); PLATELET COUNT 449 x10e3/uL (140-360); RED BLOOD COUNT 2.88 x10e6/uL (4.3-5.7); RED CELL DISTRIBUTION WIDTH 17.2 % (11.7-14.4); WHITE BLOOD COUNT 12.25 x10e3/uL (4.8-10.8)
[2024-01-14 07:20] LABS: ALBUMIN 2.4 g/dL (3.5-5.0); ALBUMIN/GLOBULIN RATIO 0.5 (0.8-2.0); ANION GAP 13.6 mmol/L (8-16); BILIRUBIN,TOTAL 0.2 mg/dL (0.2-1.2); CALCIUM 9.1 mg/dL (8.4-10.2); CREATININE, SERUM 0.84 mg/dL (0.72-1.25); POTASSIUM 3.6 mmol/L (3.5-5.1)
[2024-01-14] MEDS: POTASSIUM CHLORIDE 10MEQ/100ML 100 ML IV SCH (08:48)
[2024-01-14] MEDS: MIDODRINE 2.5 MG TAB PO SCH (12:30)
[2024-01-14] MEDS: METOPROLOL TARTRATE 50 MG TAB PO SCH (17:08)
[2024-01-15] VITALS (30 sets, daily range): BP systolic 78–148; BP diastolic 50–122; PULSE 86–127; RESP 19–41; TEMP 98.2–98.9; O2SAT 87–100
[2024-01-15] MEDS: DEXMEDETOMIDINE 400MCG/NS100ML 100 ML IV PRN (23:44)
[2024-01-15] MEDS: PROPOFOL IV EMULSION 10MG/ML 100 ML IV PRN (23:44)
[2024-01-16] VITALS (101 sets, daily range): BP systolic 49–135; BP diastolic 39–81; PULSE 33–112; RESP 0–46; TEMP 98–99.5; O2SAT 99–100
[2024-01-16 00:06] LABS: ABG HCO3 29 mmol/L (22-26); ABG PCO2 51 mmHg (35-45); ABG PH 7.37 (7.35-7.45); ABG PO2 66 mmHg (80-105); ABG TCO2 31
[2024-01-16 00:30] LABS: BASOPHILS % 0.2 % (0.0-1.0); EOSINOPHILS # (AUTO) 0.1 (0.0-0.4); EOSINOPHILS % 0.5 % (0.0-6.0); HEMATOCRIT 30.5 % (38.2-49.6); HEMOGLOBIN 9.5 g/dL (14.0-18.0); LYMPHOCYTES # (AUTO) 1.7 (1.0-3.2); LYMPHOCYTES % 13.2 % (18.0-39.1); MEAN CORPUSCULAR HEMOGLOBIN 30.3 pg (28-32); MEAN CORPUSCULAR HGB CONC 31.1 g/dL (31-35); MEAN CORPUSCULAR VOLUME 97.1 fL (81-99); MONOCYTES # (AUTO) 0.4 (0.2-0.8); MONOCYTES % 2.9 % (4.4-11.3); NEUTROPHILS # (AUTO) 10.6 (2.1-6.9); NEUTROPHILS % 82.4 % (38.7-80.0); PLATELET COUNT 467 x10e3/uL (140-360); RED BLOOD COUNT 3.14 x10e6/uL (4.3-5.7); WHITE BLOOD COUNT 12.87 x10e3/uL (4.8-10.8)
[2024-01-16 00:34] LABS: INR 1.07; PROTHROMBIN TIME 14.5 seconds (11.9-14.5)
[2024-01-16 00:35] LABS: PARTIAL THROMBOPLASTIN TIME 30.3 seconds (23.8-35.5)
[2024-01-16] MEDS: NOREPINEPHRINE 8 MG/D5W 250 ML 250 ML IV SCH (00:45)
[2024-01-16] MEDS ORDERED: PROPOFOL IV EMULSION 10 MG/ML 50 ML VIAL IV PRN ×2 (02:00→02:45)
[2024-01-16 07:17] LABS: BASOPHILS # (AUTO) 0.1 (0.0-0.1); BASOPHILS % 0.5 % (0.0-1.0); EOSINOPHILS # (AUTO) 0.1 (0.0-0.4); EOSINOPHILS % 0.4 % (0.0-6.0); HEMATOCRIT 32.5 % (38.2-49.6); HEMOGLOBIN 10.1 g/dL (14.0-18.0); LYMPHOCYTES # (AUTO) 3.9 (1.0-3.2); LYMPHOCYTES % 13.1 % (18.0-39.1); MEAN CORPUSCULAR HEMOGLOBIN 30.4 pg (28-32); MEAN CORPUSCULAR HGB CONC 31.1 g/dL (31-35); MEAN CORPUSCULAR VOLUME 97.9 fL (81-99); MONOCYTES # (AUTO) 1.4 (0.2-0.8); MONOCYTES % 4.5 % (4.4-11.3); NEUTROPHILS # (AUTO) 23.5 (2.1-6.9); NEUTROPHILS % 78.7 % (38.7-80.0); PLATELET COUNT 474 x10e3/uL (140-360); RED BLOOD COUNT 3.32 x10e6/uL (4.3-5.7); RED CELL DISTRIBUTION WIDTH 16.7 % (11.7-14.4); WHITE BLOOD COUNT 29.92 x10e3/uL (4.8-10.8)
[2024-01-16 07:29] LABS: ANION GAP 17.6 mmol/L (8-16); CALCIUM 9.3 mg/dL (8.4-10.2); CREATININE, SERUM 1.77 mg/dL (0.72-1.25); POTASSIUM 3.6 mmol/L (3.5-5.1)
[2024-01-16] MEDS: Vancomycin IV 1 GM in SODIUM CHLORIDE 0.9% 250ML 250 ML IV ONE (07:51)
[2024-01-16] MEDS: LACTATED RINGER'S 1,000 ML INJ ONE (07:51)
[2024-01-16] MEDS: DEXMEDETOMIDINE 400MCG/NS100ML 100 ML IV ONE (08:33)
[2024-01-16] MEDS: NOREPINEPHRINE 8 MG/D5W 250 ML 250 ML ONE (08:33)
[2024-01-16] MEDS: PROPOFOL IV EMULSION 10MG/ML 100 ML ONE ×2 (08:33)
[2024-01-16] MEDS: SODIUM CHLORIDE 0.9% 500ML 500 ML ONE (08:33)
[2024-01-16 08:39] LABS: BAND NEUTROPHILS % (MANUAL) 10 %; LYMPHOCYTES % (MANUAL) 8 % (19-48); METAMYELOCYTES % (MANUAL) 6 % (0-0); MONOCYTES % (MANUAL) 18 % (3.4-9.0); MYELOCYTES % (MANUAL) 5 % (0-0); NEUTROPHILS % (MANUAL) 53 % (40-74); PLATELET ESTIMATE ADEQUATE; PLATELET MORPHOLOGY COMMENT NORMAL; RBC MORPHOLOGY COMMENT NORMAL
[2024-01-16] MEDS: LEVETIRACETAM ORAL SOLUTION 500 MG/5 ML SOLN PEG SCH (10:24)
[2024-01-16 10:34] LABS: ABG HCO3 23 mmol/L (22-26); ABG PCO2 34 mmHg (35-45); ABG PH 7.43 (7.35-7.45); ABG PO2 92 mmHg (80-105); ABG TCO2 24
[2024-01-16] MEDS: METOPROLOL TARTRATE 25 MG TAB PO SCH (13:00)
[2024-01-16] MEDS: LACTATED RINGER'S 1,000 ML INJ SCH (16:24)
[2024-01-17] VITALS (87 sets, daily range): BP systolic 73–133; BP diastolic 40–83; PULSE 80–116; RESP 9–28; TEMP 97.9–99.1; O2SAT 97–100
[2024-01-17 08:20] LABS: ALANINE AMINOTRANSFERASE < 6 IU/L (0-55); ALBUMIN 1.9 g/dL (3.5-5.0); ALBUMIN/GLOBULIN RATIO 0.5 (0.8-2.0); ALKALINE PHOSPHATASE 56 IU/L (40-150); ANION GAP 17.1 mmol/L (8-16); BILIRUBIN,TOTAL 0.5 mg/dL (0.2-1.2); BLOOD UREA NITROGEN 49 mg/dL (7-26); BUN/CREATININE RATIO 22 (6-25); CALCIUM 8.3 mg/dL (8.4-10.2); CARBON DIOXIDE 19 mmol/L (22-29); CHLORIDE 99 mmol/L (98-107); CREATININE, SERUM 2.24 mg/dL (0.72-1.25); EST GLOMERULAR FILTRATION RATE 29 ML/MIN (>=60); GLUCOSE 116 mg/dL (74-118); POTASSIUM 4.1 mmol/L (3.5-5.1); SODIUM 131 mmol/L (136-145)
[2024-01-17 08:36] LABS: MAGNESIUM 1.9 MG/DL (1.3-2.1); PHOSPHORUS 4.5 MG/DL (2.3-4.7)
[2024-01-17 08:59] LABS: BASOPHILS # (AUTO) 0.1 (0.0-0.1); BASOPHILS % 0.4 % (0.0-1.0); EOSINOPHILS # (AUTO) 0.3 (0.0-0.4); EOSINOPHILS % 0.7 % (0.0-6.0); HEMATOCRIT 23.5 % (38.2-49.6); HEMOGLOBIN 7.4 g/dL (14.0-18.0); LYMPHOCYTES # (AUTO) 2.1 (1.0-3.2); LYMPHOCYTES % 6.1 % (18.0-39.1); MEAN CORPUSCULAR HEMOGLOBIN 30.1 pg (28-32); MEAN CORPUSCULAR HGB CONC 31.5 g/dL (31-35); MEAN CORPUSCULAR VOLUME 95.5 fL (81-99); MONOCYTES # (AUTO) 1.7 (0.2-0.8); NEUTROPHILS # (AUTO) 28.9 (2.1-6.9); NEUTROPHILS % 84.8 % (38.7-80.0); PLATELET COUNT 306 x10e3/uL (140-360); RED BLOOD COUNT 2.46 x10e6/uL (4.3-5.7); RED CELL DISTRIBUTION WIDTH 16.2 % (11.7-14.4)
[2024-01-17 10:04] LABS: BAND NEUTROPHILS % (MANUAL) 8 %; EOSINOPHILS % (MANUAL) 1 % (0-7); LYMPHOCYTES % (MANUAL) 2 % (19-48); METAMYELOCYTES % (MANUAL) 2 % (0-0); MONOCYTES % (MANUAL) 1 % (3.4-9.0); NEUTROPHILS % (MANUAL) 86 % (40-74)
[2024-01-17 10:05] LABS: ANISOCYTOSIS SLIGHT; HYPOCHROMASIA SLIGHT; PLATELET ESTIMATE ADEQUATE; PLATELET MORPHOLOGY COMMENT NORMAL
[2024-01-17 11:14] LABS: ABG HCO3 21 mmol/L (22-26); ABG PCO2 33 mmHg (35-45); ABG PO2 217 mmHg (80-105); ABG TCO2 22
[2024-01-17] MEDS: SODIUM CHLORIDE 0.9% 250ML 250 ML IV ONE (12:04)
[2024-01-17] MEDS: FUROSEMIDE INJ 10 MG/ML 4 ML VIAL IV ONE (17:37)
[2024-01-18] VITALS (63 sets, daily range): BP systolic 103–142; BP diastolic 47–76; PULSE 80–129; RESP 14–30; TEMP 96.9–98.4; O2SAT 95–100
[2024-01-18 06:36] LABS: BASOPHILS % 0.2 % (0.0-1.0); EOSINOPHILS # (AUTO) 0.1 (0.0-0.4); EOSINOPHILS % 0.3 % (0.0-6.0); LYMPHOCYTES # (AUTO) 1.2 (1.0-3.2); LYMPHOCYTES % 4.5 % (18.0-39.1); MEAN CORPUSCULAR HEMOGLOBIN 31.8 pg (28-32); MEAN CORPUSCULAR HGB CONC 33.3 g/dL (31-35); MEAN CORPUSCULAR VOLUME 95.5 fL (81-99); MONOCYTES % 3.7 % (4.4-11.3); NEUTROPHILS % 89.6 % (38.7-80.0); PLATELET COUNT 273 x10e3/uL (140-360); RED BLOOD COUNT 2.01 x10e6/uL (4.3-5.7); RED CELL DISTRIBUTION WIDTH 16.3 % (11.7-14.4); WHITE BLOOD COUNT 25.73 x10e3/uL (4.8-10.8)
[2024-01-18 06:38] LABS: HEMATOCRIT 19.2 % (38.2-49.6); HEMOGLOBIN 6.4 g/dL (14.0-18.0)
[2024-01-18 07:12] LABS: ALBUMIN 1.6 g/dL (3.5-5.0); ALBUMIN/GLOBULIN RATIO 0.4 (0.8-2.0); ALKALINE PHOSPHATASE 88 IU/L (40-150); ANION GAP 19.6 mmol/L (8-16); BILIRUBIN,TOTAL 0.3 mg/dL (0.2-1.2); BLOOD UREA NITROGEN 46 mg/dL (7-26); BUN/CREATININE RATIO 21 (6-25); CALCIUM 7.8 mg/dL (8.4-10.2); CARBON DIOXIDE 18 mmol/L (22-29); CHLORIDE 94 mmol/L (98-107); CREATININE, SERUM 2.19 mg/dL (0.72-1.25); EST GLOMERULAR FILTRATION RATE 29 ML/MIN (>=60); GLUCOSE 158 mg/dL (74-118); POTASSIUM 3.6 mmol/L (3.5-5.1); SODIUM 128 mmol/L (136-145); TOTAL PROTEIN 5.4 g/dL (6.5-8.1)
[2024-01-18 07:14] LABS: ALANINE AMINOTRANSFERASE < 6 IU/L (0-55)
[2024-01-18] MEDS: ENOXAPARIN SOD INJ 40 MG/0.4 ML SYR SC SCH (08:44)
[2024-01-18 09:23] LABS: ABG HCO3 24 mmol/L (22-26); ABG PCO2 41 mmHg (35-45); ABG PH 7.37 (7.35-7.45); ABG PO2 159 mmHg (80-105); ABG TCO2 25
[2024-01-18] MEDS: SODIUM CHLORIDE 0.9% 250ML 250 ML IV ONE (09:45)
[2024-01-18 11:41] LABS: BAND NEUTROPHILS % (MANUAL) 3 %; LYMPHOCYTES % (MANUAL) 3 % (19-48); NEUTROPHILS % (MANUAL) 94 % (40-74); PLATELET ESTIMATE ADEQUATE; PLATELET MORPHOLOGY COMMENT NORMAL
[2024-01-18 11:43] LABS: RBC MORPHOLOGY COMMENT NORMAL
[2024-01-18] MEDS: LEVALBUTEROL HCL SOLN NEBU 0.63 MG/3 ML NEB INH SCH (12:59)
[2024-01-19] VITALS (73 sets, daily range): BP systolic 100–142; BP diastolic 45–81; PULSE 57–125; RESP 17–32; TEMP 97.5–98.8; O2SAT 92–100
[2024-01-19 06:23] LABS: BASOPHILS # (AUTO) 0.1 (0.0-0.1); BASOPHILS % 0.3 % (0.0-1.0); EOSINOPHILS # (AUTO) 0.1 (0.0-0.4); EOSINOPHILS % 0.3 % (0.0-6.0); HEMATOCRIT 27.5 % (38.2-49.6); LYMPHOCYTES # (AUTO) 1.4 (1.0-3.2); LYMPHOCYTES % 5.7 % (18.0-39.1); MEAN CORPUSCULAR HEMOGLOBIN 30.3 pg (28-32); MEAN CORPUSCULAR HGB CONC 32.7 g/dL (31-35); MEAN CORPUSCULAR VOLUME 92.6 fL (81-99); MONOCYTES # (AUTO) 1.2 (0.2-0.8); MONOCYTES % 4.6 % (4.4-11.3); NEUTROPHILS # (AUTO) 22.2 (2.1-6.9); NEUTROPHILS % 87.8 % (38.7-80.0); PLATELET COUNT 246 x10e3/uL (140-360); RED BLOOD COUNT 2.97 x10e6/uL (4.3-5.7); RED CELL DISTRIBUTION WIDTH 16.2 % (11.7-14.4); WHITE BLOOD COUNT 25.31 x10e3/uL (4.8-10.8)
[2024-01-19 06:55] LABS: ALBUMIN 1.8 g/dL (3.5-5.0); ALBUMIN/GLOBULIN RATIO 0.4 (0.8-2.0); ALKALINE PHOSPHATASE 72 IU/L (40-150); ANION GAP 19.4 mmol/L (8-16); BILIRUBIN,TOTAL 0.4 mg/dL (0.2-1.2); BLOOD UREA NITROGEN 57 mg/dL (7-26); BUN/CREATININE RATIO 23 (6-25); CALCIUM 8.6 mg/dL (8.4-10.2); CARBON DIOXIDE 20 mmol/L (22-29); CHLORIDE 102 mmol/L (98-107); CREATININE, SERUM 2.52 mg/dL (0.72-1.25); EST GLOMERULAR FILTRATION RATE 25 ML/MIN (>=60); GLUCOSE 87 mg/dL (74-118); SODIUM 138 mmol/L (136-145); TOTAL PROTEIN 6.3 g/dL (6.5-8.1)
[2024-01-19 07:01] LABS: ALANINE AMINOTRANSFERASE < 6 IU/L (0-55); POTASSIUM 3.4 mmol/L (3.5-5.1)
[2024-01-19] MEDS: POTASSIUM CHLORIDE 20MEQ/100ML 100 ML IV ONE (08:59)
[2024-01-19 09:30] LABS: BASOPHILS % (MANUAL) 1 % (0-1.5); HYPOCHROMASIA SLIGHT; LYMPHOCYTES % (MANUAL) 7 % (19-48); MONOCYTES % (MANUAL) 4 % (3.4-9.0); NEUTROPHILS % (MANUAL) 88 % (40-74); PLATELET ESTIMATE ADEQUATE; PLATELET MORPHOLOGY COMMENT NORMAL; POLYCHROMASIA FEW
[2024-01-19] MEDS: LACTATED RINGER'S 1,000 ML INJ SCH (16:20)
[2024-01-20] VITALS (23 sets, daily range): BP systolic 118–150; BP diastolic 50–82; PULSE 74–116; RESP 20–29; TEMP 98.1–99.3; O2SAT 92–99
[2024-01-20 05:18] LABS: BASOPHILS # (AUTO) 0.1 (0.0-0.1); BASOPHILS % 0.4 % (0.0-1.0); EOSINOPHILS # (AUTO) 0.2 (0.0-0.4); EOSINOPHILS % 1.3 % (0.0-6.0); HEMATOCRIT 27.2 % (38.2-49.6); HEMOGLOBIN 8.6 g/dL (14.0-18.0); LYMPHOCYTES # (AUTO) 1.8 (1.0-3.2); LYMPHOCYTES % 12.8 % (18.0-39.1); MEAN CORPUSCULAR HEMOGLOBIN 30.1 pg (28-32); MEAN CORPUSCULAR HGB CONC 31.6 g/dL (31-35); MEAN CORPUSCULAR VOLUME 95.1 fL (81-99); MONOCYTES # (AUTO) 1.2 (0.2-0.8); MONOCYTES % 8.7 % (4.4-11.3); NEUTROPHILS # (AUTO) 10.8 (2.1-6.9); NEUTROPHILS % 75.5 % (38.7-80.0); PLATELET COUNT 238 x10e3/uL (140-360); RED BLOOD COUNT 2.86 x10e6/uL (4.3-5.7); RED CELL DISTRIBUTION WIDTH 16.2 % (11.7-14.4); WHITE BLOOD COUNT 14.27 x10e3/uL (4.8-10.8)
[2024-01-20 05:39] LABS: ALANINE AMINOTRANSFERASE < 6 IU/L (0-55); ALBUMIN 1.9 g/dL (3.5-5.0); ALBUMIN/GLOBULIN RATIO 0.5 (0.8-2.0); ALKALINE PHOSPHATASE 83 IU/L (40-150); ANION GAP 15.5 mmol/L (8-16); BILIRUBIN,TOTAL 0.3 mg/dL (0.2-1.2); BLOOD UREA NITROGEN 54 mg/dL (7-26); BUN/CREATININE RATIO 24 (6-25); CALCIUM 8.8 mg/dL (8.4-10.2); CARBON DIOXIDE 22 mmol/L (22-29); CHLORIDE 105 mmol/L (98-107); CREATININE, SERUM 2.26 mg/dL (0.72-1.25); EST GLOMERULAR FILTRATION RATE 28 ML/MIN (>=60); GLUCOSE 100 mg/dL (74-118); POTASSIUM 3.5 mmol/L (3.5-5.1); SODIUM 139 mmol/L (136-145); TOTAL PROTEIN 6.1 g/dL (6.5-8.1)
[2024-01-20] MEDS ORDERED: VANCOMYCIN HCL 125 MG CAPSULE PO SCH (12:00)
[2024-01-20 12:55] LABS: HEMATOCRIT 27.7 % (38.2-49.6)
[2024-01-21] VITALS (24 sets, daily range): BP systolic 109–140; BP diastolic 56–73; PULSE 20–119; RESP 7–30; TEMP 97.4–99.4; O2SAT 95–100
[2024-01-21 07:54] LABS: BASOPHILS # (AUTO) 0.1 (0.0-0.1); BASOPHILS % 0.5 % (0.0-1.0); EOSINOPHILS # (AUTO) 0.2 (0.0-0.4); EOSINOPHILS % 1.6 % (0.0-6.0); HEMATOCRIT 27.8 % (38.2-49.6); HEMOGLOBIN 8.6 g/dL (14.0-18.0); LYMPHOCYTES # (AUTO) 2.9 (1.0-3.2); LYMPHOCYTES % 21.6 % (18.0-39.1); MEAN CORPUSCULAR HEMOGLOBIN 29.8 pg (28-32); MEAN CORPUSCULAR HGB CONC 30.9 g/dL (31-35); MEAN CORPUSCULAR VOLUME 96.2 fL (81-99); MONOCYTES # (AUTO) 1.4 (0.2-0.8); MONOCYTES % 10.1 % (4.4-11.3); NEUTROPHILS # (AUTO) 8.6 (2.1-6.9); NEUTROPHILS % 63.6 % (38.7-80.0); PLATELET COUNT 263 x10e3/uL (140-360); RED BLOOD COUNT 2.89 x10e6/uL (4.3-5.7); RED CELL DISTRIBUTION WIDTH 16.1 % (11.7-14.4); WHITE BLOOD COUNT 13.48 x10e3/uL (4.8-10.8)
[2024-01-21 08:15] LABS: ALANINE AMINOTRANSFERASE < 6 IU/L (0-55); ALBUMIN 1.9 g/dL (3.5-5.0); ALBUMIN/GLOBULIN RATIO 0.4 (0.8-2.0); ALKALINE PHOSPHATASE 87 IU/L (40-150); ANION GAP 16.6 mmol/L (8-16); BILIRUBIN,TOTAL 0.4 mg/dL (0.2-1.2); BLOOD UREA NITROGEN 53 mg/dL (7-26); BUN/CREATININE RATIO 25 (6-25); CALCIUM 8.9 mg/dL (8.4-10.2); CARBON DIOXIDE 22 mmol/L (22-29); CHLORIDE 107 mmol/L (98-107); CREATININE, SERUM 2.08 mg/dL (0.72-1.25); EST GLOMERULAR FILTRATION RATE 31 ML/MIN (>=60); GLUCOSE 81 mg/dL (74-118); POTASSIUM 3.6 mmol/L (3.5-5.1); SODIUM 142 mmol/L (136-145); TOTAL PROTEIN 6.3 g/dL (6.5-8.1)
[2024-01-21] MEDS: ACETAMINOPHEN 325 MG TAB PEG PRN (20:01)
[2024-01-21] MEDS: METOCLOPRAMIDE HCL 10 MG/2ML VIAL IV ONE (22:57)
[2024-01-22] VITALS (22 sets, daily range): BP systolic 117–153; BP diastolic 51–84; PULSE 86–129; RESP 18–32; TEMP 98–99.1; O2SAT 93–100
[2024-01-22] MEDS: METOCLOPRAMIDE HCL 10 MG/2ML VIAL IV SCH (00:03)
[2024-01-22 06:57] LABS: BASOPHILS # (AUTO) 0.1 (0.0-0.1); BASOPHILS % 0.8 % (0.0-1.0); EOSINOPHILS # (AUTO) 0.4 (0.0-0.4); EOSINOPHILS % 2.8 % (0.0-6.0); HEMATOCRIT 32.2 % (38.2-49.6); HEMOGLOBIN 9.9 g/dL (14.0-18.0); LYMPHOCYTES # (AUTO) 3.3 (1.0-3.2); LYMPHOCYTES % 26.6 % (18.0-39.1); MEAN CORPUSCULAR HEMOGLOBIN 29.9 pg (28-32); MEAN CORPUSCULAR HGB CONC 30.7 g/dL (31-35); MEAN CORPUSCULAR VOLUME 97.3 fL (81-99); MONOCYTES # (AUTO) 1.5 (0.2-0.8); MONOCYTES % 11.7 % (4.4-11.3); NEUTROPHILS # (AUTO) 6.8 (2.1-6.9); NEUTROPHILS % 54.3 % (38.7-80.0); PLATELET COUNT 312 x10e3/uL (140-360); RED BLOOD COUNT 3.31 x10e6/uL (4.3-5.7)
[2024-01-22 07:18] LABS: ALBUMIN 2.1 g/dL (3.5-5.0); ALBUMIN/GLOBULIN RATIO 0.5 (0.8-2.0); ANION GAP 16.7 mmol/L (8-16); BILIRUBIN,TOTAL 0.3 mg/dL (0.2-1.2); CALCIUM 8.8 mg/dL (8.4-10.2); CREATININE, SERUM 2.18 mg/dL (0.72-1.25); POTASSIUM 3.7 mmol/L (3.5-5.1); TOTAL PROTEIN 6.6 g/dL (6.5-8.1)
[2024-01-22] MEDS ORDERED: METOCLOPRAMIDE HCL 10 MG/2ML VIAL IV SCH (07:30)
[2024-01-22 07:33] LABS: % IRON SATURATION 15 % (15-50); IRON 33 ug/dL (65-175); TOTAL IRON BINDING CAPACITY 213 ug/dL (261-478); TRANSFERRIN 152 mg/dL (174-364)
[2024-01-23] VITALS (21 sets, daily range): BP systolic 118–150; BP diastolic 60–93; PULSE 9–136; RESP 15–40; TEMP 97.4–98.7; O2SAT 95–100
[2024-01-23] MEDS: IRON SUCROSE 100 MG in SODIUM CHLORIDE 0.9% 100 ML IV SCH (08:26)
[2024-01-24] VITALS (18 sets, daily range): BP systolic 103–164; BP diastolic 53–94; PULSE 91–135; RESP 21–29; TEMP 98–99; O2SAT 94–100
[2024-01-24] MEDS: METOCLOPRAMIDE HCL 10 MG/2ML VIAL IV SCH (05:17)
[2024-01-24 07:24] LABS: CALCIUM 9.1 mg/dL (8.4-10.2); CREATININE, SERUM 2.13 mg/dL (0.72-1.25)
[2024-01-24] MEDS: DEXTROSE 5% 1,000 ML IV ONE (09:15)
[2024-01-24] MEDS ORDERED: MUPIROCIN 2% OINT 22 GM TUBE NS SCH (17:00)
[2024-02-13 07:37] LABS: ABG HCO3 24 mmol/L (22-26); ABG PCO2 41 mmHg (35-45); ABG PH 7.37 (7.35-7.45); ABG PO2 159 mmHg (80-105); ABG TCO2 25
[2024-02-13 07:37] LABS: ABG HCO3 21 mmol/L (22-26); ABG PCO2 33 mmHg (35-45); ABG PO2 217 mmHg (80-105); ABG TCO2 22
[2024-02-13 07:37] LABS: ABG HCO3 23 mmol/L (22-26); ABG PCO2 34 mmHg (35-45); ABG PH 7.43 (7.35-7.45); ABG PO2 92 mmHg (80-105); ABG TCO2 24
[2024-02-14 07:57] LABS: ABG HCO3 22 mmol/L (22-26); ABG PCO2 39 mmHg (35-45); ABG PH 7.37 (7.35-7.45); ABG PO2 122 mmHg (80-105); ABG TCO2 23
[2024-02-14 07:57] LABS: ABG HCO3 29 mmol/L (22-26); ABG PCO2 51 mmHg (35-45); ABG PH 7.37 (7.35-7.45); ABG PO2 66 mmHg (80-105); ABG TCO2 31
[2024-02-14 07:57] LABS: ABG HCO3 24 mmol/L (22-26); ABG PCO2 34 mmHg (35-45); ABG PH 7.46 (7.35-7.45); ABG PO2 156 mmHg (80-105); ABG TCO2 25
[2024-02-14 07:58] LABS: ABG HCO3 22 mmol/L (22-26); ABG PCO2 28 mmHg (35-45); ABG PH 7.51 (7.35-7.45); ABG PO2 285 mmHg (80-105); ABG TCO2 23
[2024-02-14 07:58] LABS: ABG HCO3 22 mmol/L (22-26); ABG PCO2 48 mmHg (35-45); ABG PH 7.27 (7.35-7.45); ABG PO2 141 mmHg (80-105); ABG TCO2 23
== END 2024-01-24 16:42 | DRG 871 ==
LOC: ER 13:18 → ERHOLD 13:43 → ICU 15:11
PROVIDERS: ADMIT Internal Medicine; ATTEND Internal Medicine
PROC: 0BH17EZ Insertion of Endotracheal Airway into Trachea, Via Natural or Artificial Opening (ICD-10-PCS; principal; 2024-01-10)
PROC: 5A1945Z Respiratory Ventilation, 24-96 Consecutive Hours (ICD-10-PCS; 2024-01-10)
PROC: 02HV33Z Insertion of Infusion Device into Superior Vena Cava, Percutaneous Approach (ICD-10-PCS; 2024-01-10)
PROC: 3E0333Z Introduction of Anti-inflammatory into Peripheral Vein, Percutaneous Approach (ICD-10-PCS; 2024-01-10)
PROC: 3E033XZ Introduction of Vasopressor into Peripheral Vein, Percutaneous Approach (ICD-10-PCS; 2024-01-10)
PROC: 4A133R1 Monitoring of Arterial Saturation, Peripheral, Percutaneous Approach (ICD-10-PCS; 2024-01-12)
PROC: 5A1945Z Respiratory Ventilation, 24-96 Consecutive Hours (ICD-10-PCS; 2024-01-15)
PROC: 0BH17EZ Insertion of Endotracheal Airway into Trachea, Via Natural or Artificial Opening (ICD-10-PCS; 2024-01-15)
PROC: 0T9B70Z Drainage of Bladder with Drainage Device, Via Natural or Artificial Opening (ICD-10-PCS; 2024-01-15)
PROC: 30233N1 Transfusion of Nonautologous Red Blood Cells into Peripheral Vein, Percutaneous Approach (ICD-10-PCS; 2024-01-18)
DX: A41.52 Sepsis due to Pseudomonas (principal); G93.41 Metabolic encephalopathy; J96.02 Acute respiratory failure with hypercapnia; J15.1 Pneumonia due to Pseudomonas; J96.01 Acute respiratory failure with hypoxia; J69.0 Pneumonitis due to inhalation of food and vomit; E44.0 Moderate protein-calorie malnutrition; N17.9 Acute kidney failure, unspecified; K92.1 Melena; N39.0 Urinary tract infection, site not specified; Z68.1 Body mass index [BMI] 19.9 or less, adult; G20.A1 Parkinson's disease without dyskinesia, without mention of fluctuations; Z51.5 Encounter for palliative care; Z66 Do not resuscitate; R13.12 Dysphagia, oropharyngeal phase; D50.0 Iron deficiency anemia secondary to blood loss (chronic); F02.80 Dementia in other diseases classified elsewhere, unspecified severity, without behavioral disturbance, psychotic disturbance, mood disturbance, and anxiety; I49.8 Other specified cardiac arrhythmias; R53.81 Other malaise; M62.50 Muscle wasting and atrophy, not elsewhere classified, unspecified site; N40.0 Benign prostatic hyperplasia without lower urinary tract symptoms; G40.909 Epilepsy, unspecified, not intractable, without status epilepticus; Z89.512 Acquired absence of left leg below knee; Z93.1 Gastrostomy status; Z86.16 Personal history of COVID-19
CPT/HCPCS: 31500; 36415; 36569; 36600; 51700; 71045; 80048; 80053; 81001; 81015; 82270; 82550; 82607; 82746; 82805; 82948; 83540; 83605; 83735; 83880; 84100; 84443; 84466; 84484; 85014; 85018; 85025; 85045; 85610; 85730; 86850; 86900; 86920; 87040; 87070; 87086; 87186; 87205; 87400; 87420; 93005; 93306; 94002; 94003; 94640; 94660; 94667; 94668; 94669; 94799; 99252; 99284; J0330; J0692; J0696; J1650; J1756; J1940; J2185; J2470; J2543; J2765; J3480; J7030; J7040; J7050; J7070; P9016; U0002